=== PATIENT | male | born 2000 | race Hispanic/Latino ===

== ENCOUNTER 2022-07-15 08:12 | Outpatient (CLI) | payer BC | END 2022-07-15 08:13 | disposition home or self-care (01) | LOC: CSHWCC 08:12 | PROVIDERS: ATTEND Nurse Practitioner Family | DX: T81.89XD Other complications of procedures, not elsewhere classified, subsequent encounter (principal) | CPT/HCPCS: 97605; 99203; G0463 ==

== ENCOUNTER 2022-07-19 10:28 | Outpatient (CLI) | payer BC | END 2022-07-19 10:29 | disposition home or self-care (01) | LOC: CSHWCC 10:28 | PROVIDERS: ATTEND Nurse Practitioner Family | DX: T81.89XD Other complications of procedures, not elsewhere classified, subsequent encounter (principal) ==

== ENCOUNTER 2022-07-20 10:28 | Outpatient (CLI) | payer BC ==
[2022-07-20] MEDS ORDERED: Iopamidol 300 61% 100 ML VIAL FS ONE (10:34)
== END 2022-07-20 10:29 | disposition home or self-care (01) ==
LOC: CSHCT 10:28
PROVIDERS: ATTEND Surgery
DX: K63.1 Perforation of intestine (nontraumatic) (principal); K66.8 Other specified disorders of peritoneum; R19.07 Generalized intra-abdominal and pelvic swelling, mass and lump; S32.03 Fracture of third lumbar vertebra; K63.89 Other specified diseases of intestine
CPT/HCPCS: 74177

== ENCOUNTER 2022-07-22 10:36 | Outpatient (CLI) | payer BC | END 2022-07-22 10:37 | disposition home or self-care (01) | LOC: CSHWCC 10:36 | PROVIDERS: ATTEND Nurse Practitioner Family | DX: T81.89XD Other complications of procedures, not elsewhere classified, subsequent encounter (principal) | CPT/HCPCS: 97605 ==

== ENCOUNTER 2022-07-26 15:19 | Outpatient (CLI) | payer BC | END 2022-07-26 15:20 | disposition home or self-care (01) | LOC: CSHWCC 15:19 | PROVIDERS: ATTEND Nurse Practitioner Family | DX: T81.89XD Other complications of procedures, not elsewhere classified, subsequent encounter (principal) | CPT/HCPCS: 97605 ==